=== PATIENT | female | born 1980 | race Caucasian/White ===

== ENCOUNTER 2025-03-12 16:19 | Emergency (ER) | payer MEDICAID, OTHER, SELFPAY ==
[~2025-03-12] VITALS: Ht 157.5 cm; Wt 97.7 kg
[~2025-03-12 16:19] MED LIST: CYMB1CAP5 PO; FLEXERIL PO; IBUP600T PO; MAXA10TA17 PO; NEUR100C PO; SAVELLA PO; TRAM50TA2 OR; VITAMIN D50000 UNT PO
[2025-03-13 05:28] LABS: BASO # 0.0 10^3/uL (0.0-0.2); BASO % 0.3 % (0.0-1.0); EOS # 0.2 10^3/uL (0.0-0.5); EOS % 1.7 % (0.0-3.0); LYMPH # 1.9 10^3/uL (1.5-5.0); LYMPH % 15.5 % (24.0-44.0); MONO # 0.6 10^3/uL (0.0-0.8); MONO % 4.7 % (2.0-8.0); NEUTROPHILS # 9.3 10^3/uL (1.5-8.5); NEUTROPHILS % 77.1 % (36.0-66.0); PLATELET COUNT, AUTOMATED 333 10^3/uL (150-450)
[2025-03-13 05:54] LABS: ALT/SGPT 25 U/L (7.0-40); AST/SGOT 18 U/L (<34); CALCIUM LEVEL 9.8 MG/DL (8.5-10.1); CARBON DIOXIDE LEVEL 24 MMOL/L (20-31); CHLORIDE LEVEL 106 MMOL/L (98-107); CREATININE FOR GFR 0.90 MG/DL (0.55-1.30); GLOMERULAR FILTRATION RATE 79.9 (>58); MAGNESIUM LEVEL 2.1 MG/DL (1.8-2.4); POTASSIUM SERUM 4.0 MMOL/L (3.5-5.1); SODIUM LEVEL 141 MMOL/L (136-145)
[2025-03-13] MEDS ORDERED: TRIA37.577 PO (07:09)
[2025-03-13] MEDS ORDERED: HYDR1TAB33 PO (07:09)
[2025-03-13] MEDS ORDERED: AIMO70IN2 SQ (07:09)
[2025-03-13] MEDS ORDERED: CLOB20TA3 PO ×3 (07:09→12:29)
[2025-03-13] MEDS ORDERED: TRAZ-252 PO (07:09)
[2025-03-13] MEDS ORDERED: FLUV100T20 PO (07:09)
[2025-03-13] MEDS ORDERED: PRAZ5CAP PO (07:09)
[2025-03-13] MEDS ORDERED: VENTAER INH ×2 (07:09→08:36)
[2025-03-13] MEDS ORDERED: DIVA-41 PO (07:09)
[2025-03-13] MEDS ORDERED: PROP80TA PO (07:09)
[2025-03-13] MEDS ORDERED: TOPI-257 PO (07:09)
[2025-03-13] MEDS ORDERED: PANT40TA29 PO (07:09)
[2025-03-13 08:17] LABS: CPK CREATINE PHOSPHOKINASE 22 U/L (34-145)
[2025-03-13 08:18] LABS: CK-MB VALUE MASS < 1.0 NG/ML (<3.6)
[2025-03-13 08:27] LABS: CK-MB VALUE MASS < 1.0 NG/ML (<3.6)
[2025-03-13] MEDS: KETOROLAC 30 MG/ML 1 ML VIAL IV ONE (08:28)
[2025-03-13] MEDS: diphenhydrAMINE 50 MG/ML VIAL IV ONE (08:28)
[2025-03-13] MEDS: NS (Normal Saline) 0.9% 1,000 ML IV ONE ×2 (08:28→10:07)
[2025-03-13] MEDS: LIDOCAINE 5% PATCH TD ONE (08:28)
[2025-03-13 08:32] LABS: CPK CREATINE PHOSPHOKINASE 32 U/L (34-145)
[2025-03-13 08:36] LABS: KETONE, URINE AUTO RFX 1+ mg/dL (NEGATIVE); LEUKOCYTE ESTERASE UR AUTO RFX NEGATIVE (NEGATIVE); MUCUS, URINE RFX SMALL (NEGATIVE); NITRITE, URINE AUTO RFX NEGATIVE (NEGATIVE); RBC, URINE AUTO RFX 0 /HPF (0-3); SQUAM EPITHELIAL CELL UR AURFX 4 /HPF (0-6); WBC, URINE AUTO RFX 1 /HPF (0-3)
[2025-03-13 08:54] LABS: AMPHETAMINES LEVEL URINE NEGATIVE (NEGATIVE); BARBITURATES URINE NEGATIVE (NEGATIVE)
[2025-03-13 08:55] LABS: BENZODIAZEPINES URINE NEGATIVE (NEGATIVE); CANNABINOIDS URINE NEGATIVE (NEGATIVE); COCAINE METABOLITE URINE NEGATIVE (NEGATIVE); METHADONE URINE NEGATIVE (NEGATIVE); OPIATES URINE NEGATIVE (NEGATIVE); PHENCYCLIDINE URINE NEGATIVE (NEGATIVE)
[2025-03-13] MEDS: ACETAMINOPHEN 500 MG TAB PO ONE (09:01)
[2025-03-13] MEDS ORDERED: LIDO1ADH93 TOP (10:07)
[2025-03-13 12:15] VITALS: BP 117/92; TEMP 97.8; O2SAT 100
[2025-03-13] MEDS ORDERED: DEPA1TAB3 PO (12:27)
== END 2025-03-13 12:40 | disposition home or self-care (01) ==
LOC: M ED 16:19
DX: G43.909 Migraine, unspecified, not intractable, without status migrainosus (principal); R11.2 Nausea with vomiting, unspecified; M54.50 Low back pain, unspecified; R55 Syncope and collapse; R79.89 Other specified abnormal findings of blood chemistry; J45.909 Unspecified asthma, uncomplicated; G40.909 Epilepsy, unspecified, not intractable, without status epilepticus; K58.9 Irritable bowel syndrome, unspecified; E03.9 Hypothyroidism, unspecified; I45.81 Long QT syndrome; F41.9 Anxiety disorder, unspecified; F32.A Depression, unspecified; F43.10 Post-traumatic stress disorder, unspecified; F17.210 Nicotine dependence, cigarettes, uncomplicated; Z88.8 Allergy status to other drugs, medicaments and biological substances; Z79.51 Long term (current) use of inhaled steroids; Z79.1 Long term (current) use of non-steroidal anti-inflammatories (NSAID); Z79.899 Other long term (current) drug therapy
CPT/HCPCS: 70450; 71046; 72125; 72131; 73521; 80053; 80307; 81001; 82140; 82550; 82553; 83690; 83735; 84443; 84484; 85025; 87486; 87581; 87633; 87798; 93005; 93041; 94760; 96361; 96374; 99285; J1200; J1885